=== PATIENT | female | born 1975 | race Caucasian/White ===

== ENCOUNTER 2018-10-12 08:19 | Emergency (ER) | payer BC, OTHER ==
[~2018-10-12] VITALS: Ht 165.1 cm; Wt 82.9 kg
[2018-10-12 08:21] VITALS: BP 127/70; PULSE 104; RESP 18; Ht 165.1 cm; Wt 82.9 kg
--- NOTE | 2018-10-12 08:33 | ERD ---
ER Documentation Chief Complaint Chief Complaint ear ache, fever & sore throat x2 days HPI 43-year-old female, presents to the emergency department, complaining of 2 days with fever, T-max 100.5, associated with sore throat and right ear pain. The pain is sharp, constant, 6/10. Medications taken for pain: Ibuprofen and Tylenol, last dose yesterday. ROS All systems reviewed and are negative except as per history of present illness. Medications Home Meds Active Scripts Acetaminophen* (Tylenol*) 325 Mg Tablet, 2 TAB PO Q8 PRN for PAIN AND OR ELEVATED TEMP, #20 TAB Prov:NARESH BRITTON MD 10/12/18 Ibuprofen* (Motrin*) 400 Mg Tab, 400 MG PO Q8, #15 TAB Prov:NARESH BRITTON MD 10/12/18 Neomycin/Polymyxin/Hydrocort* (Cortisporin* Otic) 10 Ml Susp, 4 DROP RIGHT EAR QID for 7 Days, EA Prov:NARESH BRITTON MD 10/12/18 Allergies Allergies: Coded Allergies: No Known Allergy (Verified Allergy, Mild, 04/02/07) FmHx Family History: diabetes; No coronary disease Physical Exam Vitals Vital Signs Date Temp Pulse Resp B/P (MAP) Pulse Ox O2 O2 Flow FiO2 Time Delivery Rate 10/12/18 100.5 104 18 127/70 96 08:21 (89) Physical Exam Const: No acute distress Head: Atraumatic Eyes: Injected conjunctiva ENT: Erythematous oropharynx, right ear: Arlette-tympanic erythema, canal with edema and erythema. Contralateral ear normal Neck: Full range of motion. No meningismus. Resp: Clear to auscultation bilaterally Cardio: Regular rate and rhythm, no murmurs Abd: Soft, non tender, non distended. Normal bowel sounds Skin: No petechiae or rashes Back: No midline or flank tenderness Ext: No cyanosis, or edema Neur: Awake and alert Psych: Normal Mood and Affect Results 24 hrs Laboratory Tests Test 10/12/18 08:50 10/12/18 08:51 Bedside Urine pH (LAB) 6.0 Bedside Urine Protein (LAB) Negative Bedside Urine Glucose (UA) Negative Bedside Urine Ketones (LAB) Negative Bedside Urine Blood 1+ Bedside Urine Nitrite (LAB) Negative Bedside Urine Leukocyte Esterase (L 2+ POC Beta HCG, Qualitative NEGATIVE Current Medications Medications Dose Sig/Ana Start Time Status Last (Trade) Ordered Route PRN Stop Time Admin Dose Reason Admin 650 mg ONCE ONCE 10/12/18 DC 10/12/18 Acetaminophen PO 09:00 10/12/18 08:46 (Tylenol 09:01 Tab) Ibuprofen 400 mg ONCE ONCE 10/12/18 DC 10/12/18 (Motrin) PO 09:00 10/12/18 08:46 09:01 Procedures/MDM Vital signs stable, differential diagnosis include but not limited to: infection bacterial/viral/fungal. Tonsillitis, eustachian dysfunction, allergies, foreign body, cholesteatoma. Less likely mastoiditis, malignant otitis, meningitis. Physical examination and clinical presentation consistent most likely with right otitis externa During the ED course the patient remained stable, no new complaints. Clinical impression discussed with the patient who agrees with management. The patient is stable to be treated outpatient and will be discharged home with a Rx for antibiotics and ibuprofen. Some side effects of prescribed medications (headache, rash, nausea, vomiting, diarrhea, drowsiness, bleeding, hypertension, interactions with other medications) were reviewed. The patient was instructed to follow up with the primary care provider in the next 48h. If symptoms persist, worsen or new symptoms develop, then patient should return to the ED immediately. Disclaimer: Inadvertent spelling and grammatical errors are likely due to EHR/dictation software use and do not reflect on the overall quality of patient care. Also, please note that the electronic time recorded on this note does not necessarily reflect the actual time of the patient encounter. Departure Diagnosis: Primary Impression: Right otitis externa Additional Impression: UTI (urinary tract infection) Condition: Stable Patient Instructions: External Ear Infection (Adult) Additional Instructions: Muchas les por [facility] para schmid servicio. Esperamos que en schmid visita a la mary jo de emergencia schmid problema medico haya sido solucionado y que se sienta mucho mejor. Para estar seguros que schmid mejoria sigue en proceso, le pedimos el favor de hacer duglas diana de seguimiento medico con schmid doctor primario en los proximos 2-4 belle. Lleve con usted estos documentos y las medicinas recetadas. Si tricia sintomas empeoran, NO SE ESPERE, por favor regrese a mary jo de emergencia INMEDIATAMENTE. En juan jose que usted no tenga un mdico de atencin primaria: Llame al mdico o clnica comunitaria de referencia que aparece abajo lance las horas de consultorio para hacer duglas diana para que le vean. CLINICAS: [facility] [id number] [facility] [phone] [facility] [phone] [facility] [phone] [facility] [place] [phone] [address] [facility]. [phone] NARESH MITCHELL MD Oct 12, 2018 08:33
[2018-10-12] MEDS ORDERED: IBUPROFEN 200 MG TAB PO ONE (09:00)
[2018-10-12] MEDS ORDERED: ACETAMINOPHEN 325 MG TAB PO ONE (09:00)
[2018-10-12] MEDS ORDERED: IBUP-1561 PO (09:14)
[2018-10-12] MEDS ORDERED: ACET325T33 PO (09:14)
[2018-10-12] MEDS ORDERED: NPH10OT RIGHT EAR (09:14)
[2018-10-12] MEDS ORDERED: CIPR-193 PO (09:28)
== END 2018-10-12 09:36 | disposition home or self-care (01) ==
LOC: FTE 08:19
DX: H60.91 Unspecified otitis externa, right ear (principal); N39.0 Urinary tract infection, site not specified
CPT/HCPCS: 81003; 81025; Z7502; Z7610; 99283